=== PATIENT | female | born 1945 | race Caucasian/White ===

== ENCOUNTER → 2016-07-10 | Outpatient (CLI) | payer MEDICARE, BC | LOC: MW.CHGS 13:15 | PROVIDERS: ATTEND Surgery | DX: Z01.818 Encounter for other preprocedural examination (principal); D36.9 Benign neoplasm, unspecified site | CPT/HCPCS: 99214 ==

== ENCOUNTER 2016-07-26 09:20 | Day surgery (SDC) | payer MEDICARE, BC ==
[~2016-07-26 09:20] MED LIST: Lactated Ringers 1,000 ML IV SCH; Lidocaine 2% 5 ML SDV ONE; Midazolam 1 MG/ML 2 ML SDV ONE; Propofol 200 MG/20 ML SDV ONE; Sodium Chloride 0.9% 10 ML Syringe FLUSH PRN; Sodium Chloride 0.9% 2.5 ML Syringe FLUSH PRN; fentaNYL 100 MCG/2 ML SDV ONE
--- NOTE | 2016-07-26 09:47 | PCM.PREANE ---
Preanesthetic Assessment - Anesthesia/Transfusion/Family Hx Anesthesia History: Prior Anesthesia Without Reaction Family History of Anesthesia Reaction: No Transfusion History: No Prior Transfusion(s) Intubation History: Unknown - Review of Systems General: No Symptoms Pulmonary: No Symptoms Cardiovascular: No Symptoms Gastrointestinal: No symptoms Neurological: No Symptoms Other: Reports: None - Physical Assessment Height: 1.68 m Weight: 76.204 kg ASA Class: 3 Mental Status: Alert & Oriented x3 Airway Class: Mallampati = 2 Dentition: Reports: Normal Dentition, Bridge (on sides x2 left x1 right) Thyro-Mental Finger Breadths: 2 Mouth Opening Finger Breadths: 3 ROM/Head Extension: Full Lungs: Clear to auscultation, Normal respiratory effort Cardiovascular: Regular Rate, Regular Rhythm - Allergies Allergies/Adverse Reactions: Allergies Allergy/AdvReac Type Severity Reaction Status Date / Time No Known Allergies Allergy Verified 07/24/16 08:30 - Blood Blood Available: No - Anesthesia Plan Pre-Op Medication Ordered: None - Acknowledgements Anesthesia Type Planned: MAC Pt an Appropriate Candidate for the Planned Anesthesia: Yes Alternatives and Risks of Anesthesia Discussed w Pt/Guardian: Yes Pt/Guardian Understands and Agrees with Anesthesia Plan: Yes PreAnesthesia Questionnaire Cardiovascular History: Reports: High cholesterol, Hypertension Gastrointestinal History: Reports: Diverticulosis, Other (see below) (h/o colon polyps) Genitourinary History: Reports: None COPYRIGHT EXPERT History: Reports: Neurological History: Reports: Concussion Endocrine/Metabolic History: Reports: Hypothyroidism - Past Surgical History Head Surgeries/Procedures: Reports: None GI Surgical History: Reports: Colonoscopy (last one 6 years ago) Female Surgical History: Reports: Hysterectomy Endocrine Surgical History: Reports: Thyroidectomy Other Endocrine Surgeries/Procedures: sub total thyroidectomy Musculoskeletal Surgical History: Reports: Arthroscopic knee (left ACL repair) - SUBSTANCE USE Smoking Status *Q: Former Smoker Tobacco Use Within Last Twelve Months: No Recreational Drug Use History: No - HOME MEDS Home Medications: Home Meds Fish Oil/DHA/EPA [Fish Oil 1,200 MG] 2 tab PO DAILY 07/24/16 [History] Levothyroxine Sodium [Synthroid] 100 mcg PO DAILY 07/24/16 [History] Simvastatin [Zocor] 20 mg PO DAILY 07/24/16 [History] amLODIPine [Norvasc] 5 mg PO DAILY 07/24/16 [History] - CURRENT (IN HOUSE) MEDS Current Meds: Current Medications Lactated Ringer's (Ringers, Lactated) 1,000 mls @ 125 mls/hr IV ASDIRECTED GRACIELA Sodium Chloride (Saline Flush) 10 ml FLUSH ASDIRECTED PRN PRN Reason: Keep Vein Open Sodium Chloride (Saline Flush) 2.5 ml FLUSH ASDIRECTED PRN PRN Reason: Keep Vein Open Discontinued Medications Fentanyl (Sublimaze) Confirm Administered Dose 100 mcg .ROUTE .STK-MED ONE Stop: 07/26/16 08:52 Lidocaine (Xylocaine-Mpf 2%) Confirm Administered Dose 5 ml .ROUTE .STK-MED ONE Stop: 07/26/16 08:51 Midazolam HCl (Versed 1 Mg/Ml) Confirm Administered Dose 2 mg .ROUTE .STK-MED ONE Stop: 07/26/16 08:52 Propofol (Diprivan 20 Ml) Confirm Administered Dose 200 mg .ROUTE .STK-MED ONE Stop: 07/26/16 08:51
[2016-07-26] MEDS ORDERED: Propofol 200 MG/20 ML SDV ONE (11:54)
--- NOTE | 2016-07-26 12:29 | PCM.OPNOTE ---
- General Post-Op/Procedure Note Date of Surgery/Procedure: 07/26/16 Operative Procedure(s): Colonoscopy Findings: 1 sigmoid colon polyp 2 rectal polyps Pre Op Diagnosis: Colonoscopy Post-Op Diagnosis: 1 sigmoid colon polyp 2 rectal polyps Anesthesia Technique: MAC Primary Surgeon: Amanda Molina Condition: Good
--- NOTE | 2016-07-26 12:44 | PCM.POSTAN ---
POST ANESTHESIA ASSESSMENT - MENTAL STATUS Mental Status: alert, oriented - RESPIRATORY Respiratory Status: respiratory rate WNL, airway patent, O2 saturation stable - CARDIOVASCULAR CV Status: pulse rate WNL, blood pressure stable - GASTROINTESTINAL GI Status: no symptoms - POST OP HYDRATION Hydration Status: adequate & stable - OBSERVATIONS Free Text/Narrative:: no anesthesia problems
[2016-07-26 13:28] VITALS: BP 148/70
--- NOTE | 2016-07-26 15:02 | OR ---
SURGEON: AKOSUA SEAMAN MD DATE OF PROCEDURE: 07/26/2016 PREOPERATIVE DIAGNOSIS: History of colon polyps. POSTOPERATIVE DIAGNOSIS: Sigmoid colon polyp, 2 rectal polyps. Diverticulosis PROCEDURE PERFORMED: Screening colonoscopy. INSTRUMENT USED: Olympus colonoscope. ANESTHESIA: MAC. EXTENT OF EXAM: To the cecum. PREPARATION: Fair. LIMITATIONS: Unable to retroflex within the cecum secondary to moving proximally. INDICATIONS FOR EXAMINATION: The patient is a 71-year-old female, who has a history of a tubular adenoma removed 6 years ago. She presents for repeat colonoscopy. We discussed the procedure as well as expected perioperative course. We discussed the risks, including bleeding, infection, damage to surrounding structures, including perforation. The patient verbalized understanding and wished to proceed. PROCEDURE IN DETAIL: The patient was brought to the endoscopy suite and placed in left lateral decubitus position. A time-out was completed verifying the patient's name, age, date of , allergies, and procedure to be performed. Monitored anesthesia care was induced and continuous oxygen was provided via nasal cannula throughout the procedure. After adequate sedation was achieved, a digital rectal exam was performed. This was within normal limits. A well-lubricated colonoscope was inserted into the rectum and advanced under direct visualization to the level of cecum. The patient's sigmoid colon had a large amount of diverticulitis throughout and was extremely tortuous making this difficult. The cecum was identified by both visual and anatomic landmarks. A photograph was taken of the cecal cap, but due to significant looping more proximally, I was unable to retroflex my scope within the cecum. The scope was straightened out and fully withdrawn while examining the color, texture, anatomy, and integrity of the mucosa from the cecum to the anal canal. The findings were consistent with diverticulosis within the descending and sigmoid colon. The patient also had three 1 to 2 mm polyps present in the distal sigmoid colon, and 2 in the rectum. All 3 of these were removed using a cold biopsy forceps. The scope was retroflexed within the rectum to allow visualization of the anal canal opening. This appeared normal and photograph was taken. The scope was then straightened out and removed from the patient. The cecum to anus time was over 6 minutes. The patient tolerated the procedure well and was transferred to recovery room in stable condition. ENDOSCOPIC DIAGNOSIS: One distal sigmoid colon polyp, two rectal polyps. RECOMMENDATION: Follow up in clinic in 2 weeks. WILMAR ASTORGA /[id number] MTDD
== END 2016-07-26 13:25 | disposition home or self-care (01) ==
LOC: MW.SDS 09:20
PROVIDERS: ATTEND Surgery
PROC: 0DBP8ZZ Excision of Rectum, Via Natural or Artificial Opening Endoscopic (ICD-10-PCS; principal; 2016-07-26)
PROC: 0DBN8ZZ Excision of Sigmoid Colon, Via Natural or Artificial Opening Endoscopic (ICD-10-PCS; 2016-07-26)
DX: Z12.11 Encounter for screening for malignant neoplasm of colon (principal); D12.5 Benign neoplasm of sigmoid colon; D12.8 Benign neoplasm of rectum; K57.30 Diverticulosis of large intestine without perforation or abscess without bleeding; K57.32 Diverticulitis of large intestine without perforation or abscess without bleeding; I10 Essential (primary) hypertension; E78.5 Hyperlipidemia, unspecified; E89.0 Postprocedural hypothyroidism; E78.00 Pure hypercholesterolemia, unspecified; Z86.010 Personal history of colon polyps; Z87.891 Personal history of nicotine dependence; Z80.0 Family history of malignant neoplasm of digestive organs; Z90.710 Acquired absence of both cervix and uterus; Z98.890 Other specified postprocedural states; Z79.899 Other long term (current) drug therapy
CPT/HCPCS: 45380; J2250; J3010; J7120; 00810; 88305; J2704

== ENCOUNTER → 2016-08-01 | Outpatient (CLI) | payer MEDICARE, BC | LOC: MW.CHGS 08:00 | PROVIDERS: ATTEND Surgery | DX: D12.6 Benign neoplasm of colon, unspecified (principal) | CPT/HCPCS: G0463 ==

== ENCOUNTER 2019-08-22 10:09 | Emergency (ER) | payer MEDICARE, BC, OTHER ==
--- NOTE | 2019-08-22 10:14 | EDM.PDOC ---
<Emiliano Hidalgo - Last Filed: 08/22/19 11:14> ED HPI GENERAL MEDICAL PROBLEM - General Stated Complaint: LIGHT HEADED/VOMITTING Time Seen by Provider: 08/22/19 10:13 - Related Data Allergies Allergy/AdvReac Type Severity Reaction Status Date / Time No Known Allergies Allergy Verified 07/24/16 08:30 Home Meds: Home Meds Fish Oil/DHA/EPA [Fish Oil 1,200 MG] 2 tab PO DAILY 07/24/16 [History] Levothyroxine Sodium [Synthroid] 100 mcg PO DAILY 07/24/16 [History] Simvastatin [Zocor] 30 mg PO DAILY 07/24/16 [History] amLODIPine [Norvasc] 5 mg PO DAILY 07/24/16 [History] Meclizine [Antivert] 25 mg PO TID PRN #15 tab 08/22/19 [Rx] Ondansetron [Zofran ODT] 4 mg PO Q6H PRN #8 tab.dis 08/22/19 [Rx] Course - Vital Signs Text/Narrative:: Patient was seen and examined by me at 11:10 AM she presents with symptoms of vertigo and nausea after undergoing an ultrasound as an outpatient today she denies any chest pain or shortness of breath the vertigo is apparently fatigable and episodic. The nausea has been consistent all morning. The vertigo is inducible on exam she has normal cranial nerves no pronator drift and equal warehouser strength and lower extremity strengths. We will treat her symptomatically with Phenergan and reassess. Last Recorded V/S: Last Vital Signs Temp 97.2 F 08/22/19 10:22 Pulse 45 L 08/22/19 12:45 Resp 16 08/22/19 12:45 BP 156/71 H 08/22/19 12:45 Pulse Ox 97 08/22/19 13:00 Orthostatic Blood Pressure [ 157/76 Standing] Orthostatic Blood Pressure [ 160/75 Sitting] Orthostatic Blood Pressure [ 164/76 Supine] - Orders/Labs/Meds Orders: Active Orders 24 hr Category Date Time Status EKG Documentation Completion [RC] STAT Care 08/22/19 10:23 Active Orthostatic Vital Signs [RC] ASDIRECTED Care 08/22/19 10:23 Active Oxygen Therapy, ED [RC] ASDIRECTED Care 08/22/19 12:06 Active Labs: Laboratory Tests 08/22/19 08/22/19 08/22/19 Range/Units 10:40 10:40 10:40 WBC 4.95 (4.0-11.0) K/uL RBC 4.72 (4.30-5.90) M/uL Hgb 14.4 (12.0-16.0) g/dL Hct 43.9 (36.0-46.0) % MCV 93.0 (80.0-98.0) fL MCH 30.5 (27.0-32.0) pg MCHC 32.8 (31.0-37.0) g/dL RDW Std Deviation 40.9 (28.0-62.0) fl RDW Coeff of Dorian 12 (11.0-15.0) % Plt Count 274 (150-400) K/uL MPV 10.20 (7.40-12.00) fL Neut % (Auto) 69.7 (48.0-80.0) % Lymph % (Auto) 21.8 (16.0-40.0) % Ray % (Auto) 7.3 (0.0-15.0) % Eos % (Auto) 0.8 (0.0-7.0) % Baso % (Auto) 0.4 (0.0-1.5) % Neut # (Auto) 3.5 (1.4-5.7) K/uL Lymph # (Auto) 1.1 (0.6-2.4) K/uL Ray # (Auto) 0.4 (0.0-0.8) K/uL Eos # (Auto) 0.0 (0.0-0.7) K/uL Baso # (Auto) 0.0 (0.0-0.1) K/uL Nucleated RBC % 0.0 /100WBC Nucleated RBCs # 0 K/uL INR 0.98 D-Dimer, Quantitative 0.57 H (0.0-0.50) mg/L FEU Sodium 142 (136-145) mmol/L Potassium 3.8 (3.5-5.1) mmol/L Chloride 106 (98-107) mmol/L Carbon Dioxide 27.2 (21.0-32.0) mmol/L BUN 10 (7.0-18.0) mg/dL Creatinine 0.7 (0.6-1.0) mg/dL Est Cr Clr Drug Dosing 67.01 mL/min Estimated GFR (MDRD) > 60.0 ml/min Glucose 108 H (74-106) mg/dL Calcium 8.9 (8.5-10.1) mg/dL Total Bilirubin 0.5 (0.2-1.0) mg/dL AST 17 (15-37) IU/L ALT 22 (14-63) IU/L Alkaline Phosphatase 85 (46-116) U/L Troponin I < 0.050 (0.000-0.056) ng/mL Total Protein 7.4 (6.4-8.2) g/dL Albumin 3.5 (3.4-5.0) g/dL Globulin 3.9 (2.6-4.0) g/dL Albumin/Globulin Ratio 0.9 (0.9-1.6) Lipase 91 (73-393) U/L Urine Color Urine Appearance Urine pH (5.0-8.0) Ur Specific [place] (1.001-1.035) Urine Protein (NEGATIVE) mg/dL Urine Glucose (UA) (NEGATIVE) mg/dL Urine Ketones (NEGATIVE) mg/dL Urine Occult Blood (NEGATIVE) Urine Nitrite (NEGATIVE) Urine Bilirubin (NEGATIVE) Urine Urobilinogen (<2.0) EU/dL Ur Leukocyte Esterase (NEGATIVE) 08/22/19 Range/Units 12:30 WBC (4.0-11.0) K/uL RBC (4.30-5.90) M/uL Hgb (12.0-16.0) g/dL Hct (36.0-46.0) % MCV (80.0-98.0) fL MCH (27.0-32.0) pg MCHC (31.0-37.0) g/dL RDW Std Deviation (28.0-62.0) fl RDW Coeff of Dorian (11.0-15.0) % Plt Count (150-400) K/uL MPV (7.40-12.00) fL Neut % (Auto) (48.0-80.0) % Lymph % (Auto) (16.0-40.0) % Ray % (Auto) (0.0-15.0) % Eos % (Auto) (0.0-7.0) % Baso % (Auto) (0.0-1.5) % Neut # (Auto) (1.4-5.7) K/uL Lymph # (Auto) (0.6-2.4) K/uL Ray # (Auto) (0.0-0.8) K/uL Eos # (Auto) (0.0-0.7) K/uL Baso # (Auto) (0.0-0.1) K/uL Nucleated RBC % /100WBC Nucleated RBCs # K/uL INR D-Dimer, Quantitative (0.0-0.50) mg/L FEU Sodium (136-145) mmol/L Potassium (3.5-5.1) mmol/L Chloride (98-107) mmol/L Carbon Dioxide (21.0-32.0) mmol/L BUN (7.0-18.0) mg/dL Creatinine (0.6-1.0) mg/dL Est Cr Clr Drug Dosing mL/min Estimated GFR (MDRD) ml/min Glucose (74-106) mg/dL Calcium (8.5-10.1) mg/dL Total Bilirubin (0.2-1.0) mg/dL AST (15-37) IU/L ALT (14-63) IU/L Alkaline Phosphatase (46-116) U/L Troponin I (0.000-0.056) ng/mL Total Protein (6.4-8.2) g/dL Albumin (3.4-5.0) g/dL Globulin (2.6-4.0) g/dL Albumin/Globulin Ratio (0.9-1.6) Lipase (73-393) U/L Urine Color YELLOW Urine Appearance CLEAR Urine pH 7.5 (5.0-8.0) Ur Specific [place] 1.020 (1.001-1.035) Urine Protein NEGATIVE (NEGATIVE) mg/dL Urine Glucose (UA) NEGATIVE (NEGATIVE) mg/dL Urine Ketones NEGATIVE (NEGATIVE) mg/dL Urine Occult Blood NEGATIVE (NEGATIVE) Urine Nitrite NEGATIVE (NEGATIVE) Urine Bilirubin NEGATIVE (NEGATIVE) Urine Urobilinogen 1.0 (<2.0) EU/dL Ur Leukocyte Esterase NEGATIVE (NEGATIVE) Meds: Medications Discontinued Medications Generic Name Dose Route Start Last Admin Trade Name Freq PRN Reason Stop Dose Admin Sodium Chloride 1,000 mls @ 999 mls/hr 08/22/19 10:23 08/22/19 10:41 Normal Saline IV 08/22/19 11:23 999 mls/hr STAT ONE Administration Iopamidol 100 ml 08/22/19 12:27 08/22/19 12:31 Isovue-370 (76%) IVPUSH 08/22/19 12:28 50 ml ONETIME STA Administration Meclizine HCl 25 mg 08/22/19 11:06 Antivert PO 08/22/19 11:07 ONETIME ONE Meclizine HCl Confirm 08/22/19 13:22 Antivert Administered 08/22/19 13:23 Dose 25 mg .ROUTE .STK-MED ONE Ondansetron HCl 4 mg 08/22/19 10:23 08/22/19 10:41 Zofran IVPUSH 08/22/19 10:24 4 mg ONETIME ONE Administration Promethazine HCl 25 mg 08/22/19 11:08 08/22/19 11:14 Phenergan IM 08/22/19 11:09 25 mg ONETIME ONE Administration Departure - Departure Disposition: Home, Self-Care 01 Clinical Impression: Vertigo Nausea and vomiting Qualifiers: Vomiting type: unspecified Vomiting Intractability: non-intractable Qualified Code(s): R11.2 - Nausea with vomiting, unspecified - Discharge Information Prescriptions: Meclizine [Antivert] 25 mg PO TID PRN #15 tab PRN Reason: Dizziness Ondansetron [Zofran ODT] 4 mg PO Q6H PRN #8 tab.dis PRN Reason: Nausea Instructions: Dizziness, [id number] Referrals: Liu Peters MD [Primary Care Provider] - Additional Instructions: The following information is given to patients seen in the emergency department who are being discharged to home. This information is to outline your options for follow-up care. We provide all patients seen in our emergency department with a follow-up referral. The need for follow-up, as well as the timing and circumstances, are variable depending upon the specifics of your emergency department visit. If you don't have a primary care physician on staff, we will provide you with a referral. We always advise you to contact your personal physician following an emergency department visit to inform them of the circumstance of the visit and for follow-up with them and/or the need for any referrals to a consulting specialist. The emergency department will also refer you to a specialist when appropriate. This referral assures that you have the opportunity for follow-up care with a specialist. All of these measure are taken in an effort to provide you with optimal care, which includes your follow-up. Under all circumstances we always encourage you to contact your private physician who remains a resource for coordinating your care. When calling for follow-up care, please make the office aware that this follow-up is from your recent emergency room visit. If for any reason you are refused follow-up, please contact the [facility] Emergency Department at and asked to speak to the emergency department charge nurse. [facility] [address] [place] [address] [place] [address] 1. Meclizine and Zofran as directed. 2. May use Colace and Miralax as needed for your constipation 3. Follow up with Tracy and your primary care provider as we discussed. 4. Return to the ED as needed and as discussed. Sepsis Event Note - Focused Exam Vital Signs: Vital Signs Temp Pulse Resp BP Pulse Ox Pulse Ox 08/22/19 13:00 97 08/22/19 12:45 45 L 16 156/71 H 94 L 08/22/19 10:22 97.2 F 65 20 186/105 H 97 Date Exam was Performed: 08/22/19 Time Exam was Performed: 11:14 - My Orders Last 24 Hours: My Active Orders 08/22/19 10:23 EKG Documentation Completion [RC] STAT Orthostatic Vital Signs [RC] ASDIRECTED 08/22/19 12:06 Oxygen Therapy, ED [RC] ASDIRECTED - Assessment/Plan Last 24 Hours: My Active Orders 08/22/19 10:23 EKG Documentation Completion [RC] STAT Orthostatic Vital Signs [RC] ASDIRECTED 08/22/19 12:06 Oxygen Therapy, ED [RC] ASDIRECTED <Valeriy Gross E - Last Filed: 08/22/19 13:27> ED HPI GENERAL MEDICAL PROBLEM - General Source of Information: Reports: Patient History Limitations: Reports: No Limitations - History of Present Illness INITIAL COMMENTS - FREE TEXT/NARRATIVE: HISTORY AND PHYSICAL: History of present illness: Patient is a 74-year-old female who presents to the emergency room with complaints of feeling lightheaded, nauseated and vomiting after an ultrasound. She has been seeing Dr. Molina for some right upper quadrant/chest pain. Dr. Molina had done a chest x-ray, COVID-19, CBC, CMP, TSH all of which were normal on 08/19/2019. Today the patient had a scheduled right upper quadrant ultrasound. Patient reports she felt fine this morning and actually did not have any abdominal/chest pain. After the ultrasound was done and she was getting up from the table she felt lightheaded and became nauseated. While in the radiology department she did have several episodes of vomiting and they requested she come to the emergency room for evaluation. Patient denies any fever, chills, headache, change in vision, syncope or near syncope. Denies any chest pain, back pain, shortness of breath or cough. Denies any abdominal pain or dysuria. Does report mild constipation. Has not noted any blood in urine or stool. Patient has been eating and drinking appropriately. Review of systems: As per history of present illness and below otherwise all systems reviewed and negative. Past medical history: As per history of present illness and as reviewed below otherwise noncontributory. Surgical history: As per history of present illness and as reviewed below otherwise noncontributory. Social history: See social history for further information Family history: As per history of present illness and as reviewed below otherwise noncontributory. Physical exam: General: Well-developed and well-nourished 74-year-old female. Alert and oriented. Nontoxic-appearing and in no acute distress. HEENT: Atraumatic, normocephalic, pupils equal and reactive bilaterally, negative for conjunctival pallor or scleral icterus, mucous membranes moist, TMs normal bilaterally, throat clear, neck supple, nontender, trachea midline. No drooling or trismus noted. No meningeal signs. No hot potato voice noted. Lungs: Clear to auscultation, breath sounds equal bilaterally, chest nontender. Heart: S1S2, regular rate and rhythm without overt murmur Abdomen: Soft, nondistended, nontender. Negative for masses or hepatosplenomegaly. Negative for costovertebral tenderness. Pelvis is stable nontender. Skin: Intact, warm, dry. No lesions or rashes noted. Extremities: Atraumatic, moves all extremities per self without difficulty or deficits, negative for cords or calf pain. Neurovascular unremarkable. Neuro: Awake, alert, oriented. Cranial nerves II through XII unremarkable. Cerebellum unremarkable. Motor and sensory unremarkable throughout. Exam nonfocal. Notes: The cv tech states that she was talking and acting appropriately during her ultrasound but he noticed she seemed "glazed over" and was unbalanced when she tried to get up from the ultrasound table. Patient states that she did feel dizzy although never felt like she was going to blackout or pass out. She has not had any chest pain or shortness of breath associated with this. She did become nauseated with associated vomiting. Patient's physical examination is within normal limits. There are no neurological deficits. She has no abdominal pain and/or tenderness. Orthostatic vital signs are unremarkable. Patient continues to have nausea and vomiting after the Zofran. Dr Galvez has been directly involved in this patient' s case. Ultrasound had previously been completed prior to presenting to the emergency room. Results show no abnormality noted to the right upper quadrant although slightly limited details due to increased bowel gas. I did contact Dr. Molina to inform her that she was in the ED. Lab work is unremarkable with the exception of slightly elevated d-dimer. CT of the chest shows no findings of a pulmonary embolism. Patient states she does feel much improved after the IV fluids and Phenergan. We did discuss admission versus discharge, she would like to be discharged home. I spoke with patient's daughter, Sylwia, per patient request - about patient's discharge. Since patient declined admission we did discuss signs and symptoms that would prompt her to return to the emergency room. Patient voices understanding and is agreeable to plan of care. Denies any further questions or concerns at this time. Diagnostics: CBC, CMP, UA, Troponin, D.dimer, INR, CTA Therapeutics: IV fluids, Zofran, Phenergan IM Prescription: Meclizine and Zofran Impression: Vertigo Nausea and vomiting Plan: 1. Meclizine and Zofran as directed. 2. May use Colace and Miralax as needed for your constipation 3. Follow up with Tracy and your primary care provider as we discussed. 4. Return to the ED as needed and as discussed. Definitive disposition and diagnosis as appropriate pending reevaluation and review of above. Past Medical History Cardiovascular History: Reports: High Cholesterol, Hypertension Gastrointestinal History: Reports: Diverticulosis, Other (See Below) Genitourinary History: Reports: None VEGETABLE PACKER History: Reports: Neurological History: Reports: Concussion Endocrine/Metabolic History: Reports: Hypothyroidism - Past Surgical History Musculoskeletal Surgical History: Reports: Arthroscopic Knee Social & Family History - Caffeine Use Caffeine Use: Reports: Soda ED ROS GENERAL - Review of Systems Review Of Systems: Comprehensive ROS is negative, except as noted in HPI. ED EXAM, GENERAL - Physical Exam Exam: See Below (See dictation) Course - Vital Signs Last Recorded V/S: Last Vital Signs Temp 97.2 F 08/22/19 10:22 Pulse 45 L 08/22/19 12:45 Resp 16 08/22/19 12:45 BP 156/71 H 08/22/19 12:45 Pulse Ox 97 08/22/19 13:00 Orthostatic Blood Pressure [ 157/76 Standing] Orthostatic Blood Pressure [ 160/75 Sitting] Orthostatic Blood Pressure [ 164/76 Supine] - Orders/Labs/Meds Orders: Active Orders 24 hr Category Date Time Status EKG Documentation Completion [RC] STAT Care 08/22/19 10:23 Active Orthostatic Vital Signs [RC] ASDIRECTED Care 08/22/19 10:23 Active Oxygen Therapy, ED [RC] ASDIRECTED Care 08/22/19 12:06 Active Labs: Laboratory Tests 08/22/19 08/22/19 08/22/19 Range/Units 10:40 10:40 10:40 WBC 4.95 (4.0-11.0) K/uL RBC 4.72 (4.30-5.90) M/uL Hgb 14.4 (12.0-16.0) g/dL Hct 43.9 (36.0-46.0) % MCV 93.0 (80.0-98.0) fL MCH 30.5 (27.0-32.0) pg MCHC 32.8 (31.0-37.0) g/dL RDW Std Deviation 40.9 (28.0-62.0) fl RDW Coeff of Dorian 12 (11.0-15.0) % Plt Count 274 (150-400) K/uL MPV 10.20 (7.40-12.00) fL Neut % (Auto) 69.7 (48.0-80.0) % Lymph % (Auto) 21.8 (16.0-40.0) % Ray % (Auto) 7.3 (0.0-15.0) % Eos % (Auto) 0.8 (0.0-7.0) % Baso % (Auto) 0.4 (0.0-1.5) % Neut # (Auto) 3.5 (1.4-5.7) K/uL Lymph # (Auto) 1.1 (0.6-2.4) K/uL Ray # (Auto) 0.4 (0.0-0.8) K/uL Eos # (Auto) 0.0 (0.0-0.7) K/uL Baso # (Auto) 0.0 (0.0-0.1) K/uL Nucleated RBC % 0.0 /100WBC Nucleated RBCs # 0 K/uL INR 0.98 D-Dimer, Quantitative 0.57 H (0.0-0.50) mg/L FEU Sodium 142 (136-145) mmol/L Potassium 3.8 (3.5-5.1) mmol/L Chloride 106 (98-107) mmol/L Carbon Dioxide 27.2 (21.0-32.0) mmol/L BUN 10 (7.0-18.0) mg/dL Creatinine 0.7 (0.6-1.0) mg/dL Est Cr Clr Drug Dosing 67.01 mL/min Estimated GFR (MDRD) > 60.0 ml/min Glucose 108 H (74-106) mg/dL Calcium 8.9 (8.5-10.1) mg/dL Total Bilirubin 0.5 (0.2-1.0) mg/dL AST 17 (15-37) IU/L ALT 22 (14-63) IU/L Alkaline Phosphatase 85 (46-116) U/L Troponin I < 0.050 (0.000-0.056) ng/mL Total Protein 7.4 (6.4-8.2) g/dL Albumin 3.5 (3.4-5.0) g/dL Globulin 3.9 (2.6-4.0) g/dL Albumin/Globulin Ratio 0.9 (0.9-1.6) Lipase 91 (73-393) U/L Urine Color Urine Appearance Urine pH (5.0-8.0) Ur Specific [place] (1.001-1.035) Urine Protein (NEGATIVE) mg/dL Urine Glucose (UA) (NEGATIVE) mg/dL Urine Ketones (NEGATIVE) mg/dL Urine Occult Blood (NEGATIVE) Urine Nitrite (NEGATIVE) Urine Bilirubin (NEGATIVE) Urine Urobilinogen (<2.0) EU/dL Ur Leukocyte Esterase (NEGATIVE) 08/22/19 Range/Units 12:30 WBC (4.0-11.0) K/uL RBC (4.30-5.90) M/uL Hgb (12.0-16.0) g/dL Hct (36.0-46.0) % MCV (80.0-98.0) fL MCH (27.0-32.0) pg MCHC (31.0-37.0) g/dL RDW Std Deviation (28.0-62.0) fl RDW Coeff of Dorian (11.0-15.0) % Plt Count (150-400) K/uL MPV (7.40-12.00) fL Neut % (Auto) (48.0-80.0) % Lymph % (Auto) (16.0-40.0) % Ray % (Auto) (0.0-15.0) % Eos % (Auto) (0.0-7.0) % Baso % (Auto) (0.0-1.5) % Neut # (Auto) (1.4-5.7) K/uL Lymph # (Auto) (0.6-2.4) K/uL Ray # (Auto) (0.0-0.8) K/uL Eos # (Auto) (0.0-0.7) K/uL Baso # (Auto) (0.0-0.1) K/uL Nucleated RBC % /100WBC Nucleated RBCs # K/uL INR D-Dimer, Quantitative (0.0-0.50) mg/L FEU Sodium (136-145) mmol/L Potassium (3.5-5.1) mmol/L Chloride (98-107) mmol/L Carbon Dioxide (21.0-32.0) mmol/L BUN (7.0-18.0) mg/dL Creatinine (0.6-1.0) mg/dL Est Cr Clr Drug Dosing mL/min Estimated GFR (MDRD) ml/min Glucose (74-106) mg/dL Calcium (8.5-10.1) mg/dL Total Bilirubin (0.2-1.0) mg/dL AST (15-37) IU/L ALT (14-63) IU/L Alkaline Phosphatase (46-116) U/L Troponin I (0.000-0.056) ng/mL Total Protein (6.4-8.2) g/dL Albumin (3.4-5.0) g/dL Globulin (2.6-4.0) g/dL Albumin/Globulin Ratio (0.9-1.6) Lipase (73-393) U/L Urine Color YELLOW Urine Appearance CLEAR Urine pH 7.5 (5.0-8.0) Ur Specific [place] 1.020 (1.001-1.035) Urine Protein NEGATIVE (NEGATIVE) mg/dL Urine Glucose (UA) NEGATIVE (NEGATIVE) mg/dL Urine Ketones NEGATIVE (NEGATIVE) mg/dL Urine Occult Blood NEGATIVE (NEGATIVE) Urine Nitrite NEGATIVE (NEGATIVE) Urine Bilirubin NEGATIVE (NEGATIVE) Urine Urobilinogen 1.0 (<2.0) EU/dL Ur Leukocyte Esterase NEGATIVE (NEGATIVE) Meds: Medications Discontinued Medications Generic Name Dose Route Start Last Admin Trade Name Freq PRN Reason Stop Dose Admin Sodium Chloride 1,000 mls @ 999 mls/hr 08/22/19 10:23 08/22/19 10:41 Normal Saline IV 08/22/19 11:23 999 mls/hr STAT ONE Administration Iopamidol 100 ml 08/22/19 12:27 08/22/19 12:31 Isovue-370 (76%) IVPUSH 08/22/19 12:28 50 ml ONETIME STA Administration Meclizine HCl 25 mg 08/22/19 11:06 Antivert PO 08/22/19 11:07 ONETIME ONE Meclizine HCl Confirm 08/22/19 13:22 Antivert Administered 08/22/19 13:23 Dose 25 mg .ROUTE .STK-MED ONE Ondansetron HCl 4 mg 08/22/19 10:23 08/22/19 10:41 Zofran IVPUSH 08/22/19 10:24 4 mg ONETIME ONE Administration Promethazine HCl 25 mg 08/22/19 11:08 08/22/19 11:14 Phenergan IM 08/22/19 11:09 25 mg ONETIME ONE Administration Departure - Departure Time of Disposition: 13:18 Sepsis Event Note - Focused Exam Vital Signs: Vital Signs Temp Pulse Resp BP Pulse Ox Pulse Ox 08/22/19 13:00 97 08/22/19 12:45 45 L 16 156/71 H 94 L 08/22/19 10:22 97.2 F 65 20 186/105 H 97 Date Exam was Performed: 08/22/19 Time Exam was Performed: 13:26 - My Orders Last 24 Hours: My Active Orders 08/22/19 10:23 EKG Documentation Completion [RC] STAT Orthostatic Vital Signs [RC] ASDIRECTED 08/22/19 12:06 Oxygen Therapy, ED [RC] ASDIRECTED - Assessment/Plan Last 24 Hours: My Active Orders 08/22/19 10:23 EKG Documentation Completion [RC] STAT Orthostatic Vital Signs [RC] ASDIRECTED 08/22/19 12:06 Oxygen Therapy, ED [RC] ASDIRECTED
[2019-08-22] MEDS ORDERED: Ondansetron 4 MG/2 ML SDV IVPUSH ONE (10:23)
[2019-08-22] MEDS ORDERED: Sodium Chloride 0.9% 1,000 ML IV ONE (10:23)
[2019-08-22] MEDS ORDERED: Meclizine 25 MG Tab PO ONE (11:06)
[2019-08-22] MEDS ORDERED: Promethazine 25 MG/ML SDV IM ONE (11:08)
[2019-08-22 11:35] LABS: BLOOD UREA NITROGEN,BUN 10 mg/dL (7.0-18.0); CARBON DIOXIDE,CO2 27.2 mmol/L (21.0-32.0); CHLORIDE,CL 106 mmol/L (98-107); GLUCOSE RANDOM 108 mg/dL (74-106); LIPASE 91 U/L (73-393); POTASSIUM,K 3.8 mmol/L (3.5-5.1); SODIUM,NA 142 mmol/L (136-145)
[2019-08-22] MEDS ORDERED: Iopamidol 755 Mg/ML 100 ML Bottle IVPUSH STA (12:27)
--- NOTE | 2019-08-22 13:14 | CT ---
CT chest Technique: Multiple axial sections were obtained from above the lung apices inferiorly through the lung bases. Intravenous contrast was utilized. Study performed as a pulmonary angiogram protocol. Comparison: No prior chest CT is available. Findings: Pulmonary arteries are well opacified. No filling defects are seen to indicate pulmonary embolism. Heart is mildly enlarged. Upper visualized abdominal structures shows no discrete abnormality. Aorta shows atherosclerotic calcification without aneurysm. Mediastinum and hilar region show no adenopathy. Lung window settings were reviewed. Subpleural cyst is noted within the right lung base. Minimal scarring is seen within both lung bases. No acute parenchymal change is appreciated. No pleural effusions are noted. Bone window settings were reviewed. No acute osseous finding is appreciated. Minimal degenerative change is scattered within the spine. Impression: 1. No findings of pulmonary embolism. 2. Mild cardiomegaly. Other findings believed to be incidental. 3. Nothing acute is appreciated on other portions of the CT study of the chest. Diagnostic code #2 This report was dictated in MDT
[2019-08-22] MEDS ORDERED: Meclizine 25 MG Tab ONE (13:22)
[2019-08-22 13:30] VITALS: BP 138/58; PULSE 53
== END 2019-08-22 13:35 | disposition home or self-care (01) ==
LOC: MW.ED 10:09
DX: R42 Dizziness and giddiness (principal); R11.2 Nausea with vomiting, unspecified; E78.00 Pure hypercholesterolemia, unspecified; I10 Essential (primary) hypertension; E03.9 Hypothyroidism, unspecified; Z79.899 Other long term (current) drug therapy
CPT/HCPCS: 36415; 71275; 80053; 81003; 83690; 84484; 85025; 85379; 85610; 93005; 96361; 96372; 96374; 99284; A9270; J2405; J2550; J7030; Q9967

== ENCOUNTER 2019-12-23 07:36 | Day surgery (SDC) | payer MEDICARE, BC ==
[~2019-12-23 07:36] MED LIST changes: -Midazolam 1 MG/ML 2 ML SDV ONE; +Sodium Chloride 0.9% 10 ML SDV IV PRN
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
[2019-12-23] MEDS ORDERED: Glycopyrrolate 0.2 MG/ML SDV ONE (08:46)
--- NOTE | 2019-12-23 09:27 | PCM.OPNOTE ---
- General Post-Op/Procedure Note Date of Surgery/Procedure: 12/23/19 Operative Procedure(s): Diagnostic colonoscopy Findings: Diverticulosis, sigmoid colon polyp x3, transverse colon polyp x3 and hepatic flexure polyp x 2. Pre Op Diagnosis: Diagnostic colonoscopy for change in bowel habits Post-Op Diagnosis: Diverticulosis, sigmoid colon polyp x3, transverse colon polyp x3 and hepatic flexure polyp x 2. Anesthesia Technique: MAC Primary Surgeon: Amanda Molina Complications: None Condition: Stable
[2019-12-23 10:16] VITALS: BP 121/63; PULSE 52
--- NOTE | 2019-12-23 11:20 | PCM.POSTAN ---
POST ANESTHESIA ASSESSMENT - MENTAL STATUS Mental Status: Alert, Oriented - VITAL SIGNS Vital Signs: Last Vital Signs Temp 97.0 F 12/23/19 09:45 Pulse 52 L 12/23/19 09:45 Resp 15 12/23/19 09:45 BP 121/63 12/23/19 09:45 Pulse Ox 95 12/23/19 09:45 - RESPIRATORY Respiratory Status: Respiratory Rate WNL, Airway Patent, O2 Saturation Stable - CARDIOVASCULAR CV Status: Pulse Rate WNL, Blood Pressure Stable - GASTROINTESTINAL GI Status: No Symptoms - POST OP HYDRATION Hydration Status: Adequate & Stable
--- NOTE | 2019-12-23 11:21 | PCM48HPAN ---
Post Anesthesia Note - EVALUATION WITHIN 48HRS OF ANESTHETIC Vital Signs in Normal Range: Yes Patient Participated in Evaluation: Yes Respiratory Function Stable: Yes Airway Patent: Yes Cardiovascular Function Stable: Yes Hydration Status Stable: Yes Pain Control Satisfactory: Yes Nausea and Vomiting Control Satisfactory: Yes Mental Status Recovered: Yes Vital Signs: Last Vital Signs Temp 97.0 F 12/23/19 09:45 Pulse 52 L 12/23/19 09:45 Resp 15 12/23/19 09:45 BP 121/63 12/23/19 09:45 Pulse Ox 95 12/23/19 09:45
--- NOTE | 2019-12-24 18:27 | OR ---
SURGEON: AMANDA MOLINA MD DATE OF PROCEDURE: 12/23/2019 PREOPERATIVE DIAGNOSIS: Change in bowel habits. POSTOPERATIVE DIAGNOSES: 1. Diverticulosis. 2. Hepatic flexure polyp x2. 3. Transverse colon polyps x3. 4. Sigmoid colon polyps x3. PROCEDURE PERFORMED: Diagnostic colonoscopy with polypectomy. PRIMARY SURGEON: Amanda Molina MD ANESTHESIA: MAC. INSTRUMENT USED: Olympus colonoscope. EXTENT OF EXAM: To the cecum. PREPARATION: Good. LIMITATIONS: None. INDICATIONS FOR EXAMINATION: The patient is a 74-year-old female who presented with a change in her bowel habits. I explained the need for diagnostic colonoscopy. I explained the procedure, expected perioperative course, and risks. She verbalized understanding and wishes to proceed. PROCEDURE IN DETAIL: The patient was brought into the endoscopy suite and placed in a left lateral decubitus position. A time-out was completed verifying the patient's name, age, date of , allergies, and procedure to be performed. Monitored anesthesia care was induced and continuous oxygen was provided via nasal cannula throughout the procedure. After adequate sedation was achieved, a digital rectal exam was performed. This exam was within normal limits. A well-lubricated colonoscope was inserted in the rectum and advanced under direct visualization to the level of the cecum. The cecum was identified by both visual and anatomic landmarks. A photograph was taken of the cecal cap; however, I was unable to retroflex the scope within the cecum due to looping of the scope more proximally. The scope was then fully withdrawn while examining the color, texture, anatomy, and integrity of the mucosa from the cecum to the anal canal. The patient was found to have diverticulosis throughout the sigmoid colon. She had two hepatic flexure polyps, three transverse colon polyps, and three sigmoid colon polyps. These were removed in piecemeal fashion using cold biopsy forceps and sent to pathology. The scope was brought into the rectum and retroflexed to allow visualization of the anal canal opening. This appeared normal and a photograph was taken. The scope was then straightened out and fully withdrawn. The cecum to anus time was 25 minutes. The patient tolerated the procedure well and was transferred to the PACU in stable condition. ENDOSCOPIC DIAGNOSES: 1. Diverticulosis. 2. Hepatic flexure polyp x2. 3. Transverse colon polyps x3. 4. Sigmoid colon polyps x3. RECOMMENDATIONS: Follow up in clinic in 2 weeks. WILMAR ASTORGA /[id number]
== END 2019-12-23 10:10 | disposition home or self-care (01) ==
LOC: MW.SDS 07:36
PROVIDERS: ATTEND Surgery
DX: D12.3 Benign neoplasm of transverse colon (principal); D12.5 Benign neoplasm of sigmoid colon; K57.30 Diverticulosis of large intestine without perforation or abscess without bleeding; E78.00 Pure hypercholesterolemia, unspecified; I10 Essential (primary) hypertension; E03.9 Hypothyroidism, unspecified; Z87.891 Personal history of nicotine dependence; Z79.899 Other long term (current) drug therapy
CPT/HCPCS: 00811; 88305; J2001; J2704; J3010; J3490; J7120

== ENCOUNTER 2020-12-09 09:11 | Day surgery (SDC) | payer MEDICARE, BC ==
[~2020-12-09 09:11] MED LIST changes: -Lidocaine 2% 5 ML SDV ONE; -Propofol 200 MG/20 ML SDV ONE; -fentaNYL 100 MCG/2 ML SDV ONE
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
[2020-12-09] MEDS ORDERED: Propofol 200 MG/20 ML SDV ONE ×2 (12:11→12:42)
[2020-12-09] MEDS ORDERED: fentaNYL 100 MCG/2 ML SDV ONE (12:13)
[2020-12-09] MEDS ORDERED: propofoL 50 ML ONE (12:17)
--- NOTE | 2020-12-09 13:23 | PCM.OPNOTE ---
- General Post-Op/Procedure Note Date of Surgery/Procedure: 12/09/20 Operative Procedure(s): Diagnostic colonoscopy Findings: 3 cecal polyps, transverse colon polyp, sigmoid polyp, diverticulosis Pre Op Diagnosis: History of colon polyps Post-Op Diagnosis: Diverticulosis, sigmoid colon polyp, transverse colon polyp, cecal polyp x 3 Anesthesia Technique: MAC Primary Surgeon: Amanda Molina Condition: Good
--- NOTE | 2020-12-09 13:25 | PCM.POSTAN ---
POST ANESTHESIA ASSESSMENT - MENTAL STATUS Mental Status: Alert, Oriented - VITAL SIGNS Vital Signs: Last Vital Signs Temp 98.1 F 12/09/20 13:17 Pulse 84 12/09/20 13:17 Resp 18 12/09/20 13:17 BP 122/63 12/09/20 13:17 Pulse Ox 100 12/09/20 13:17 - RESPIRATORY Respiratory Status: Respiratory Rate WNL, Airway Patent, O2 Saturation Stable - CARDIOVASCULAR CV Status: Pulse Rate WNL, Blood Pressure Stable - GASTROINTESTINAL GI Status: No Symptoms - PAIN Pain Score: 0 - POST OP HYDRATION Hydration Status: Adequate & Stable
--- NOTE | 2020-12-09 13:27 | PCM48HPAN ---
Post Anesthesia Note - EVALUATION WITHIN 48HRS OF ANESTHETIC Vital Signs in Normal Range: Yes Patient Participated in Evaluation: Yes Respiratory Function Stable: Yes Airway Patent: Yes Cardiovascular Function Stable: Yes Hydration Status Stable: Yes Pain Control Satisfactory: Yes Nausea and Vomiting Control Satisfactory: Yes Mental Status Recovered: Yes Vital Signs: Last Vital Signs Temp 98.1 F 12/09/20 13:17 Pulse 79 12/09/20 13:23 Resp 20 12/09/20 13:23 BP 106/55 L 12/09/20 13:23 Pulse Ox 100 12/09/20 13:23 - COMMENTS/OBSERVATIONS Free Text/Narrative:: Pt doing well post-op. VSS. No apparent anesthetic complications. Dr. Ancelmo Rodriguez
[2020-12-09 14:00] VITALS: BP 133/64; PULSE 61
--- NOTE | 2020-12-10 20:31 | OR ---
SURGEON: AMANDA MOLINA MD DATE OF PROCEDURE: 12/09/2020 PREOPERATIVE DIAGNOSIS: History of colon polyps. POSTOPERATIVE DIAGNOSES: 1. Diverticulosis. 2. Sigmoid colon polyp. 3. Transverse colon polyp. 4. Cecal polyp x3. PROCEDURE PERFORMED: Diagnostic colonoscopy with polypectomy. PRIMARY SURGEON: Amanda Molina MD ANESTHESIA: MAC. INSTRUMENT USED: Olympus colonoscope. EXTENT OF EXAM: To the cecum. PREPARATION: Good. LIMITATIONS: None. INDICATIONS FOR EXAMINATION: The patient is a 75-year-old female who had multiple polyps on her colonoscopy last year. The decision was made to proceed with a repeat colonoscopy this year to ensure that the patient had no further development of colon polyps. I explained the procedure, expected perioperative course, and the risks. She verbalized understanding and wishes to proceed. PROCEDURE IN DETAIL: The patient was brought in to the endoscopy suite and placed in the left lateral decubitus position. A time-out was completed verifying the patient's name, age, date of , allergies, and procedure to be performed. Monitored anesthesia care was induced and continuous oxygen was provided via nasal cannula throughout the procedure. After adequate sedation was achieved, a digital rectal exam was performed. This exam was within normal limits. A well-lubricated colonoscope was inserted in the rectum and advanced under direct visualization to the level of the cecum. The cecum was identified by both visual and anatomic landmarks. A photograph was taken of the cecal cap. The scope was then fully withdrawn while examining the color, texture, anatomy, and integrity of mucosa from the cecum to the anal canal. The patient was noted to have diverticulosis within the second half of her colon. In the cecal cap, she had two small polyps. These were removed in piecemeal fashion using a cold biopsy forceps. Just along the ileocecal fat pad, the patient was noted to have a flat sessile polyp which did appear somewhat hyperplastic. I removed this in piecemeal fashion as best as I could. It was sent to Pathology labeled as cecal polyp #3. The patient did have a sigmoid colon polyp which was sessile and flat, as well as a transverse colon polyp. Both of these were removed in piecemeal fashion using a cold biopsy forceps. The scope was then brought into the rectum and retroflexed to allow visualization of the anal canal opening. This appeared normal and a photograph was taken. The scope was then straightened out and fully withdrawn. The cecum to anus time was greater than 6 minutes. The patient tolerated the procedure well and was transferred to the PACU in stable condition. ENDOSCOPIC DIAGNOSES: 1. Diverticulosis. 2. Sigmoid colon polyp. 3. Transverse colon polyp. 4. Cecal polyp x3. RECOMMENDATION: Follow up in clinic in two weeks. WILMAR ASTORGA /[id number]
== END 2020-12-09 14:03 | disposition home or self-care (01) ==
LOC: MW.SDS 09:11
PROVIDERS: ATTEND Surgery
DX: D12.0 Benign neoplasm of cecum (principal); K63.5 Polyp of colon; K57.30 Diverticulosis of large intestine without perforation or abscess without bleeding; E78.5 Hyperlipidemia, unspecified; I10 Essential (primary) hypertension; E03.9 Hypothyroidism, unspecified; Z79.899 Other long term (current) drug therapy; Z79.890 Hormone replacement therapy; Z98.890 Other specified postprocedural states; Z87.891 Personal history of nicotine dependence
CPT/HCPCS: 45380; 88305; J2704; J3010; J7120; 00811; 99100

== ENCOUNTER 2022-02-02 09:24 | Day surgery (SDC) | payer MEDICARE, BC ==
[~2022-02-02 09:24] MED LIST changes: -Lactated Ringers 1,000 ML IV SCH; -Sodium Chloride 0.9% 10 ML SDV IV PRN; +Sodium Chloride 0.9% 20 ML SDV IV PRN
[2022-02-02] MEDS: Lactated Ringers 1,000 ML IV SCH (10:05)
[2022-02-02] MEDS ORDERED: Propofol 200 MG/20 ML SDV ONE (10:19)
[2022-02-02] MEDS ORDERED: Lidocaine 2% 5 ML SDV ONE (10:19)
[2022-02-02] MEDS ORDERED: fentaNYL 100 MCG/2 ML SDV ONE (10:19)
[2022-02-02 11:54] VITALS: BP 124/55; PULSE 44
== END 2022-02-02 12:15 | disposition home or self-care (01) ==
LOC: MW.SDS 09:24
PROVIDERS: ATTEND Surgery
DX: Z12.11 Encounter for screening for malignant neoplasm of colon (principal); K57.30 Diverticulosis of large intestine without perforation or abscess without bleeding; I10 Essential (primary) hypertension; I48.91 Unspecified atrial fibrillation; E03.9 Hypothyroidism, unspecified; E78.00 Pure hypercholesterolemia, unspecified; F41.9 Anxiety disorder, unspecified; M85.80 Other specified disorders of bone density and structure, unspecified site; Z86.010 Personal history of colon polyps; Z98.890 Other specified postprocedural states; Z90.710 Acquired absence of both cervix and uterus; Z87.891 Personal history of nicotine dependence; Z79.890 Hormone replacement therapy; Z79.899 Other long term (current) drug therapy
CPT/HCPCS: 00812; 99100; G0105; J2704; J3010; J7120

== ENCOUNTER 2022-07-01 13:27 | Emergency (ER) | payer MEDICARE, BC ==
[2022-07-01 14:58] LABS: CORONAVIRUS COVID-19 NAA NEGATIVE (NEGATIVE); INFLUENZA A NAA NEGATIVE (NEGATIVE); INFLUENZA B NAA NEGATIVE (NEGATIVE); RESPIRATORY SYNCYTIAL VIR NAA NEGATIVE (NEGATIVE)
[2022-07-01 15:31] VITALS: BP 139/72; PULSE 65
== END 2022-07-01 15:27 | disposition home or self-care (01) ==
LOC: MW.ED 13:27
DX: J18.9 Pneumonia, unspecified organism (principal); I48.91 Unspecified atrial fibrillation; E78.00 Pure hypercholesterolemia, unspecified; I10 Essential (primary) hypertension; E03.9 Hypothyroidism, unspecified; Z79.01 Long term (current) use of anticoagulants; Z79.899 Other long term (current) drug therapy; Z20.822 Contact with and (suspected) exposure to COVID-19
CPT/HCPCS: 0241U; 71045; 99283

== ENCOUNTER 2024-02-29 19:02 | Emergency (ER) | payer MEDICARE, BC ==
[2024-02-29 19:55] LABS: BASOPHILS ABSOLUTE AUTO 0.03 K/uL (0.00-0.20); BASOPHILS PERCENT AUTO 0.5 % (0.0-1.0); EOSINOPHILS ABSOLUTE AUTO 0.03 K/uL (0.00-0.45); EOSINOPHILS PERCENT AUTO 0.5 % (0.0-6.0); HEMATOCRIT 42.8 % (37.0-47.0); HEMOGLOBIN 14.6 g/dL (12.0-16.0); IMMATURE GRAN ABSOLUTE AUTO 0.01 K/uL (0.00-0.05); IMMATURE GRAN PERCENT AUTO 0.2 % (0.0-0.4); LYMPHOCYTES ABSOLUTE AUTO 1.44 K/uL (1.00-4.80); LYMPHOCYTES PERCENT AUTO 23.1 % (24.0-44.0); MEAN CORPUSCULAR HEMOGLOBIN 30.9 pg (28.0-32.0); MEAN CORPUSCULAR HGB CONC 34.1 g/dL (32.0-36.0); MEAN CORPUSCULAR VOLUME 90.5 fL (83.0-99.0); MEAN PLATELET VOLUME 9.9 fL (9.4-12.3); MONOCYTES ABSOLUTE AUTO 0.56 K/uL (0.00-0.80); NEUTROPHILS ABSOLUTE AUTO 4.16 K/uL (1.80-7.70); NEUTROPHILS PERCENT AUTO 66.7 % (41.0-71.0); PLATELET COUNT,PLT 257 K/uL (150-400); RED BLOOD CELL COUNT 4.73 M/uL (4.10-5.30); WHITE BLOOD CELL COUNT,WBC 6.23 K/uL (3.9-11.3)
[2024-02-29 20:13] LABS: CALCIUM 9.2 mg/dL (8.5-10.1); CARBON DIOXIDE,CO2 27.4 mmol/L (21.0-32.0); CREATININE 0.7 mg/dL (0.6-1.0); EST CRCL DRUG DOSING (CG) 63.01 mL/min; POTASSIUM,K 3.9 mmol/L (3.5-5.1)
[2024-02-29 20:44] VITALS: BP 134/57; PULSE 50
== END 2024-02-29 20:43 | disposition home or self-care (01) ==
LOC: MW.ED 19:02
DX: R07.89 Other chest pain (principal); I48.91 Unspecified atrial fibrillation; I10 Essential (primary) hypertension; E78.00 Pure hypercholesterolemia, unspecified; Z90.710 Acquired absence of both cervix and uterus; Z79.01 Long term (current) use of anticoagulants; Z79.890 Hormone replacement therapy; Z79.899 Other long term (current) drug therapy
CPT/HCPCS: 36415; 71046; 71046-26; 80048; 84484; 85025; 85379; 93005; 99285